=== PATIENT | male | born 2000 | race Caucasian/White ===

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

== ENCOUNTER 2021-06-05 10:04 | Emergency (ER) | payer MEDICAID ==
[~2021-06-05] VITALS: Ht 177.8 cm; Wt 129.5 kg
[2021-06-05 10:26] VITALS: TEMP 99.8
[2021-06-05] MEDS ORDERED: PREDNISONE20 MG PO (11:29)
[2021-06-05 11:36] VITALS: BP 116/81; PULSE 116
== END 2021-06-05 11:36 | disposition home or self-care (01) ==
LOC: COL.ER 10:04
DX: J45.901 Unspecified asthma with (acute) exacerbation (principal); Z20.822 Contact with and (suspected) exposure to COVID-19; Z79.899 Other long term (current) drug therapy
CPT/HCPCS: J7512